=== PATIENT | male | born 1970 | race African-American/Black ===

== ENCOUNTER 2021-09-26 11:00 | Emergency (ER) | payer BC, OTHER ==
[~2021-09-26] VITALS: Ht 188 cm; Wt 106.6 kg
[2021-09-26] MEDS ORDERED: PROTONIX40 M2 PO (11:14)
[2021-09-26] MEDS ORDERED: CEPHALEXIN 250250 M1 PO (11:32)
[2021-09-26] MEDS ORDERED: ACYCLOVIR 400400 MG PO (11:32)
[2021-09-26 12:32] VITALS: BP 126/76
== END 2021-09-26 12:34 | disposition home or self-care (01) ==
LOC: ER 11:00
DX: A60.01 Herpesviral infection of penis (principal); Z88.0 Allergy status to penicillin; Z79.899 Other long term (current) drug therapy